=== PATIENT | male | born 1945 | race Caucasian/White ===

== ENCOUNTER → 2016-11-23 | Outpatient (CLI) | payer MEDICARE | LOC: KOH-I 11:48 | DX: M54.5 Low back pain (principal); M47.896 Other spondylosis, lumbar region | CPT/HCPCS: 72110 ==

== ENCOUNTER → 2021-04-07 | Outpatient (CLI) | payer MEDICARE ==
[~2021-04-07] MED LIST: ASPIRIN EC81 MG PO; CELEXA20 MG PO; FLOMAX0.4 MG PO; GLIPIZIDE5 MG PO; NORVASC 5 MG TAB5 MG PO; PRAVACHOL20 MG PO; PRINIVIL20 MG PO; SYNTHROID125 MCG PO; TOPROL XL 50 MG50 MG PO; ZYLOPRIM 300 M300 MG PO
== END ==
LOC: HEART CORB 10:35
DX: I10 Essential (primary) hypertension (principal); R42 Dizziness and giddiness; I95.1 Orthostatic hypotension
CPT/HCPCS: 93306